=== PATIENT | female | born 1955 | race Caucasian/White ===

== ENCOUNTER 2017-06-19 09:40 | Emergency (ER) | payer OTHER ==
[~2017-06-19] VITALS: Ht 172.7 cm; Wt 82.8 kg
[2017-06-19 09:42] VITALS: BP 102/63
[2017-06-19] MEDS ORDERED: LISI-424 PO (10:30)
[2017-06-19] MEDS ORDERED: LEVO25TA2 PO (10:30)
[2017-06-19] MEDS ORDERED: LIDOCAINE 1%, 20ML SQ ONE (10:30)
[2017-06-19] MEDS ORDERED: DIPH,PERTUSS(ACELL),TET VAC/PF 0.5 ML IM-VACC ONE (10:32)
[2017-06-19] MEDS ORDERED: LIDOCAINE 1%, 10ML ONE (10:39)
== END 2017-06-19 12:01 | disposition home or self-care (01) ==
LOC: ED 11:30
DX: S61.213A Laceration without foreign body of left middle finger without damage to nail, initial encounter (principal); S63.283A Dislocation of proximal interphalangeal joint of left middle finger, initial encounter; W01.0XXA Fall on same level from slipping, tripping and stumbling without subsequent striking against object, initial encounter; Y93.89 Activity, other specified; Y92.000 Kitchen of unspecified non-institutional (private) residence as the place of occurrence of the external cause; Y99.8 Other external cause status
CPT/HCPCS: 12001; 99284